=== PATIENT | female | born 1960 | race Caucasian/White ===

== ENCOUNTER → 2021-03-14 13:27 | Outpatient (CLI) | payer BC, SELFPAY | PROVIDERS: Visit Provider Nurse Practitioner | DX: U07.1 COVID-19 (principal) | CPT/HCPCS: C9803; U0003; U0005 ==

== ENCOUNTER 2024-11-01 09:07 | Emergency (ER) | payer BC, SELFPAY ==
[2024-11-01 09:16] VITALS: BP 197/115; PULSE 81; RESP 18; TEMP 36.7; O2SAT 99; BMI 33.5
--- NOTE | 2024-11-01 09:36 | HMH.EDGENADL ---
Discharge Plan Disposition Patient Disposition: Home, Self-Care Condition: Good Prescriptions Prescriptions: No Action triamterene-hydrochlorothiazid 37.5-25 mg capsule PO Patient Comments: TAKE 1 CAPSULE BY MOUTH ONCE DAILY meloxicam 15 mg tablet PO Patient Comments: TAKE 1 TABLET BY MOUTH ONCE DAILY IN THE MORNING FOR ARTHRITIS PAIN losartan 50 mg tablet PO Patient Comments: TAKE 1 TABLET BY MOUTH ONCE DAILY Referrals Follow up/Referrals: Francisco Anand MD [Primary Care Provider, Medical] - See instructions Activity Restrictions/Add. Instructions Additional Instructions/Restrictions: Please return if you develop any new or worsening symptoms. Clinical Impressions Clinical Impression: Tight ring on finger Print Language Print Language: Armenian Discharge ED Provider: Carson Neri General Adult HPI General Chief complaint: Extremity Problem,Nontraumatic Stated complaint: L ring finger swollen/cut off rings Time Seen by Provider: 11/01/24 09:23 Mode of Arrival: Ambulatory Source of Information: Patient Description of Symptoms (Recalled from ER Triage Doc. by RN): Patient presents to ED for left ring finger swelling with wedding bands stuck on finger. Reports only a small amount of pain, started yesterday. History of Present Illness HPI narrative: This is a 64-year-old female patient, with past medical history of hypertension, who is presenting to the emergency department today for evaluation of a ring that is stuck on her left ring finger. Patient states that this ring has become progressively tired over the last couple of weeks and she has been trying to remove the ring for the last couple of days and has been unable to do so. She has not noticed any numbness or tingling in the finger, no discoloration of the finger, but she has noticed progressive swelling of of the tissues surrounding the ring with inability to remove the ring. Related Data Home Medications ?Medication ?Instructions ?Recorded ?Confirmed losartan 50 mg tablet mg PO 07/02/23 07/02/23 meloxicam 15 mg tablet mg PO 07/02/23 07/02/23 triamterene 37.5 cap PO 07/02/23 07/02/23 mg-hydrochlorothiazide 25 mg capsule Allergies Allergy/AdvReac Type Severity Reaction Status Date / Time No Known Allergies Allergy Verified 07/02/23 15:35 [facility] Disclaimer: The information contained in this section may have been updated after the patient was seen, as this information can be updated by other users. Medical History (Updated 11/01/24 @ 09:52 by Carson Neri DO) Hypertension Surgical History (Updated 07/02/23 @ 15:39 by MATT Floyd) H/O: hysterectomy H/O arthroscopy Social History (Updated 07/02/23 @ 15:40 by MATT Floyd) Smoking Status: Never smoker alcohol intake: never current occupational status: employed Travel in the last 8 weeks?: None Have you lived/traveled outside US in past 30 days?: No Contact w/someone who lives/traveled outside US past 30 days?: No Exposure to someone with infectious disease in past 14 days?: No Do you have a fever (greater than 100.4 F or 38 C)?: No Have you tested positive for COVID-19?: No Exposed to someone with COVID-19 in past 14 days?: No Do you have a sore throat?: No Do you have a cough?: No Do you have any weakness?: No Do you have any diarrhea?: No Are you experiencing any unusual bleeding?: No Do you have any muscle aches/pain?: No Do you have any abdominal pain?: No Are you experiencing loss of taste or smell?: No ROS Obtained: Yes Systems reviewed as appropriate & no additional complaints except as documented Physical Exam General General appearance: other (See MDM) Respiratory Respiratory exam: Present other (See MDM) Cardiovascular Cardiovascular exam: Present other (See MDM) Neurological Exam Neurological exam: Present other (See MDM) Medical Decision Making Medical Records Medical records reviewed: Yes I reviewed the patient's medical records. Screening: Per USPSTF and CDC recommendations, given the prevalence of disease in our region, it is our hospital?s policy to screen for HIV and viral Hepatitis for all patients aged 18 and over and those with ongoing risk factors. Gumaro Inquiry Pt receiving controlled substance: No Gumaro was queried for this patient: No Vital Signs: 11/01/24 09:16 11/01/24 09:16 11/01/24 09:54 Temperature 98.0 F 98.0 F 98.0 F Temperature Source Oral Pulse Rate 81 62 Pulse Rate [Left] 81 Respiratory Rate 18 18 16 Blood Pressure 197/115 H 176/93 H Blood Pressure [Right Arm] 197/115 H Blood Pressure Mean [Right Arm] 142 02 Sat by Pulse Oximetry 99 99 Oxygen Delivery Method Room Air Medical Decision Narrative: In summary, this is a 64-year-old female patient who is presenting to the emergency department today for evaluation of a ring that is stuck on her left ring finger. Comorbidities include a past medical history of hypertension. On initial evaluation of the patient they were resting comfortably in no acute distress and nontoxic in appearance. They are hemodynamically stable, saturating well room air, and are neurologically intact. On physical examination of the patient there is a ring that is incarcerated on the left ring finger. There is engorged tissue surrounding this, however she does not have any discoloration of the finger proximally or distally to the ring. She has good capillary refill within the finger and normal sensation in all terminal nerve distributions of the finger. Most likely differential includes incarcerated ring on the finger. There is no concern for compartment syndrome of the finger. No concern for neurovascular injury of the finger. We initially tried to remove the ring by placing a tourniquet on the finger and exsanguinating the finger followed by removal of the ring with the assistance of lubricant jelly. This was unsuccessful. Therefore we used a ring cutter to cut the ring and pry the ring off of her finger. This was successful. Patient did not necessitate any further care while in the emergency department. She remained stable. At this time all questions were answered and all parties were agreeable with the decision to discharge home. Critical Care Critical Care Time Critical Care Time: No
--- OUTSIDE RECORDS SUMMARY | 2024-11-01 09:43 | XMS_ITS | Encounter Summary ---
Author Organization [facility] Address [address] [place] [address] Care Team Providers Care Line Repairer Name Role Phone Gabriel De Leon MD Primary Care Provider [phone] Davin Dong MD Unavailable [phone] Encounter Details Date Type Department Care Team (Latest Contact Info) Description 12/25/2017 Preop Surgical Orders [facility] Physicians - Obstetrics & Gynecology, [facility] [address] [place] [address] Davin Dong MD [address] [facility] [address] [place] [address] Fibroids, intramural Social History Tobacco Use Types Packs/Day Years Used Date Smoking Tobacco: Every Day Smokeless Tobacco: Never Comments No Sex and Gender Information Value Date Recorded Sex Assigned at Not on file Legal Sex Female 1:53 PM EST Gender Identity Not on file Sexual Orientation Not on file documented as of this encounter H&P Notes * Davin Dong MD - 12/25/2017 5:03 PM EDT 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 Mccracken is a 57 y.o. woman who presents for her pre-procedure examination. Please see priorencounter notes for more detail if applicable. Indication for Procedure: Abnormal Bleeding: no Endometrial Assessment: TVUS Uterine Pathology: Fibroids Anemia: No History: Medical History: Past Medical History: Diagnosis Date ??? Hypertension Surgical History: Past Surgical History: Procedure Laterality Date ??? DELIVERY ONLY ??? HX ENDOMETRIAL ABLATION 2002 ??? HX NASAL SEPTUM SURGERY ??? HX URETER SURGERY Social History: Social History Social History ??? Marital status: Spouse name: N/A ??? Number of children: N/A ??? Years of education: N/A Social History Main Topics ??? Smoking status: Current Every Day Smoker ??? Smokeless tobacco: Never Used ??? Alcohol use Not on file ??? Drug use: Unknown ??? Sexual activity: Not on file Other Topics Concern ??? Not on file Social History Narrative ??? No narrative on file Family History: Family History Problem Relation Age of Onset ??? Breast Cancer Mother 72 ??? High Blood Pressure Mother ??? Other Father METASTATIC BLADDER CANCER ??? Diabetes Father ??? Other Maternal Grandfather PROSTATE CANCER WATERSHED ENGINEER Medications: (Not in a hospital admission) Allergies: Allergies Allergen Reactions ??? Ampicillin Itching ??? Coconut ??? Morphine Nausea And Vomiting Review of Systems: ?? Negative for chest pain, palpitations ?? Negative for Endo/Heme ?? Negative for visions concerns ?? Negative for incontinence, dysuria, hematuria ?? Negative for HENT ?? Back pain ?? Negative for migraines or neurological issues ?? Skin: Negative ?? Negative for depression/anxiety Does the patient have a h/o a bleeding disorder (h/o nose bleeds, excessive bleeding following a surgical procedure?): no Have you been diagnosed with Sleep Apnea? no Objective: Vital Signs: vitals were not taken for this visit. Physical Exam: General Appearance: Appearance: alert, well appearing, and in no distress. Heart regular rate and rhythm, S1, S2 normal, no murmur, click, rub or gallop Lungs:clear to auscultation bilaterally Abdomenabdomen is soft without significant tenderness,, organomegaly or guarding. Uterus is 18-20 wks size, prominent at fundus. Pelvic: If supracervical approach, normal gross appearance of cervix and recent normal cytologic cervical exam. N/A Assessment: Impression: Seth Mccracken is a 57 y.o. woman with a diagnosis of massive uterine fibroids with recent growth, abdominal distention. Plan: Recommendations: 1. Medically Stable for Surgery/Anesthesia: Yes 2. Anesthesia preference: General Anesthesia 3. Medications and herbal preparations reviewed and discussed a. Discontinuation of all herbal preparations, vitamin E 7-10 days preop: yes 4. NPO after Midnight yes Seth Mccracken has informed consent? Yes, The risks/benefits associated with the procedure have beendiscussed prior to her surgery. If supracervical is planned , patient aware of the need for ongoingcytologic cervical examinations, the risk of continued light bleeding and lack of benefit in regards to sexual function. Davin Dong MD 12/25/2017 5:07 PM documented in this encounter Plan of Treatment Not on file documented as of this encounter Results * CBC (COMPLETE BLOOD COUNT) (12/31/2017 11:50 AM EST) WBC 6.7 3.8 - 10.8 10*3/uL [facility] RBC 4.42 3.80 - 5.10 10*6/uL [facility] Hemoglobin 14.2 11.7 - 15.5 g/dL [facility] Hematocrit Blood 42.7 35.0 - 45.0 % [facility] MCV 96.6 80.0 - 100.0 fL [facility] MCH 32.1 27.0 - 33.0 pg [facility] MCHC 33.3 32.0 - 36.0 g/dL [facility] RDW 13.8 11.0 - 15.0 % [facility] Platelets 313 140 - 400 10*3/uL [facility] MPV 8.4 7.5 - 11.5 fL [facility] Whole Blood (Blood) 12/31/2017 11:50 AM EST 12/31/2017 4:05 PM EST us Davin Dong MD HEMATOLOGY ORDERABLES Laura l Result [facility] [address] documented in this encounter Visit Diagnoses Diagnosis Fibroids, intramural Intramural leiomyoma of uterus documented in this encounter Care Teams Line Repairer Relationship Specialty Start Date End Date Gabriel De Leon MD [address] [place] [address] PCP - General Internal Medicine 12/18/17 Davin Dong MD [address] [place] [address] [address] [place] [address] Obstetrics & Gynecology 03/05/22 documented as of this encounter
--- OUTSIDE RECORDS SUMMARY | 2024-11-01 09:44 | XMS_ITS | Clinical Summary ---
Author Organization [facility] Address [address] [place] [address] Phone Care Team Providers Care Optical Goods Drill Operator Name Role Phone Francisco Anand MD Primary Care Provider Allergies Active Allergy Reactions Criticality Noted Date Comments Ampicillin Nausea And Vomiting 05/15/2022 Coconut Other (See Comments) 05/15/2022 . Morphine Other (See Comments) 05/15/2022 vomit Medications losartan (COZAAR) 50 mg Oral TabletIndication s:Essential hypertension Take 1 tablet by mouth once daily 30 Tablet 2 07/31/19 25 Active triamterene-hydr ochlorothiazide (DYAZIDE) 37.5-25 mg Oral CapsuleIndicatio ns:Essential hypertension Take 1 capsule by mouth once daily 30 Capsule 2 07/31/19 25 Active meloxicam (MOBIC) 15 mg Oral TabletIndication s:Chronic pain of right knee TAKE 1 TABLET BY MOUTH ONCE DAILY IN THE MORNING FOR ARTHRITIS PAIN 30 Tablet 11/01/19 25 Active meloxicam (MOBIC) 15 mg Oral TabletIndication s:Chronic pain of right knee TAKE 1 TABLET BY MOUTH ONCE DAILY IN THE MORNING FOR ARTHRITIS PAIN 30 Tablet 09/09/19 25 025 Discontinued meloxicam (MOBIC) 15 mg Oral TabletIndication s:Chronic pain of right knee TAKE 1 TABLET BY MOUTH ONCE DAILY IN THE MORNING FOR ARTHRITIS PAIN 30 Tablet 10/04/19 25 09/05/2 025 Discontinued Active Problems Problem Noted Date Diagnosed Date Essential hypertension 05/15/2022 Obesity, Class I, BMI 30-34.9 05/15/2022 Encounters Date Type Department Care Team Description 10/31/2024 Refill [facility] [address] [facility] [address] Francisco Anand MD Medication Refill 10/29/2024 Refill [facility] [address] [place] [address] Francisco Anand MD Medication Refill 10/02/2024 Refill [facility] [address] [place] [address] Francisco Anand MD Medication Refill 09/08/2024 Refill [facility] [address] [place] [address] Francisco Anand MD Medication Refill 09/06/2024 Refill [facility] [address] [place] [address] Francisco Anand MD Medication Refill 08/11/2024 Refill [facility] [address] [place] [address] Francisco Anand MD Medication Refill from Last 3 Months Surgical History Surgery Date Site/Laterality Comments RATNA AND BSO 01/03/2018 Bilateral oopherectomy SECTION 1989 HYSTERECTOMY December 2017 Medical History Medical History Date Comments Hypertension Family History Medical History Relation Name Comments Cancer Father Father Guero Cancer Maternal Grandfather Cancer Mother Mother Viea High Blood Pressure Mother Mother Viea Relation Name Status Comments Father Father Guero Maternal Grandfather prostat e Mother Mother Viea Social History Tobacco Use Types Packs/Day Years Used Date Smoking Tobacco: Former Cigarettes 0.5 40 1 981 - 2019 Smokeless Tobacco: Never Alcohol Use Standard Drinks/Week Comments Yes 3 (1 standard drink = 0.6 oz pur e alcohol) PHQ-2 Answer Date Recorded PHQ-2 Total Score 0 11/07/2023 Sexually Active Control Partners Comments Not Currently NA Comments No Sex and Gender Information Value Date Recorded Sex Assigned at Not on file Legal Sex Female 12:57 AM EDT Gender Identity Not on file Sexual Orientation Not on file Obstetrics History Para Term AB IAB SAB Ectopic Multiple Livin g Live Births 1 Last Filed Vital Signs Vital Sign Reading Time Taken Comments Blood Pressure 134/82 11/07/2023 4:20 PM EDT Pulse - - Temperature 36.4 C (97.6 F) 11/07/2023 4:20 PM EDT Respiratory Rate - - Oxygen Saturation - - Inhaled Oxygen Concentration - - Weight 100.2 kg (221 lb) 11/07/2023 4:20 PM EDT Height 176.5 cm (5' 9.5 ) 11/07/2023 4:20 PM EDT Body Mass Index 32.17 11/07/2023 4:20 PM EDT Plan of Treatment Upcoming Encounters Date Type Department Care Team (Late st Contact Info) Description 11/05/2024 4:00 PM EDT Office Visit [facility] [address] [place] [address] Francisco Anand MD [address] [place] [address] Health Maintenance Due Date Last Done Comments Hepatitis C Screening 1978 DTaP/TDaP/Td (1 - Tdap) 07/05/1979 Colonoscopy 2005 FIT 2005 Sigmoidoscopy 2005 Virtual Colonography 2005 Low Dose Lung Cancer Screening 2010 Pneumococcal Vaccine 50+ (1 of 1 - PCV) 2010 Zoster (1 of 2) 2010 COVID-19 Vaccine (1 - season) 2024 Influenza Vaccine (#1) 2024 Annual Wellness Exam 11/06/2024 11/07/2023 Cologuard 05/26/2025 05/26/2022, 05/26/2022 Colon Cancer Screening 05/26/2025 Breast Cancer Screening 07/07/2026 07/08/19, 05/25/2022, 04/18/2018, Additional history exists Hepatitis B Vaccine Aged Out No longe r eligible based on patient's age to complete this topic Meningococcal B Vaccine Aged Out No l onger eligible based on patient's age to complete this topic Goals Goal Patient Goal Type Associated Problems Recent Progress Patient-Stated? Author Blood Pressure < 140/90 Blood Pressure 134/82(2023 4:20 PM EDT) Francisco Guaman MD Maintain a healthy diet, exercise regularly and maintain an ideal body weight General No Anny Reyes CCMA Stay Tobacco Free Lifestyle Francisco Guaman MD Procedures Procedure Name Priority Date/Time Associated Diagnosis Comments MM MAMMO DIGITAL PAWEL SCREEN BILAT Routine 07/07/2024 4:26 PM EDT Encounter for screening mammogram for malignant neoplasm of breast COLOGUARD Routine 05/26/2022 5:30 AM EDT Screening for colon cancer from Last 3 Months or Most Recently Relevant to Health Maintenance Results * MM MAMMO DIGITAL PAWEL SCREEN BILAT (07/07/2024 4:26 PM EDT) Anatomical Region Laterality Modality Breast Bilateral Mammography 07/07/2024 4:26 PM EDT Impressions 07/08/2024 8:04 AM EDT Negative ([id number]) RECOMMENDATION: Routine Screening Mammogram in 1 Year Bilateral . . COMMENTS: DISCLAIMER *The patient was notified by MyChart or mail of the results for this examination. *The patient's information was entered into a reminder system with a target due date for the next breast imaging, in accordance with the [place] and the Society of Breast Imaging recommendations. *Breast Imaging has a false negative rate of 15%. *Any patient with a palpable abnormality, unexplained by breast imaging, should be managed on a clinical basis by the attending physician. Narrative 07/08/2024 8:04 AM EDT EXAM: MM MAMMO DIGITAL PAWEL SCREEN BILAT EXAM DATE: 07/07/2024 4:26 PM INDICATION: Z12.31-Encounter for screening mammogram for malignant neoplasm of [id number] COMPARISON STUDIES: Compared with prior studies the most recent being 05/25/2022 MM MAMMO DIGITAL PAWEL SCREEN BILAT at [facility] TISSUE DENSITY: There are scattered areas of fibroglandular density. FINDINGS: No mammographic evidence of malignancy. Procedure Note Justyna Brown MD - 07/08/2024 EXAM: MM MAMMO DIGITAL PAWEL SCREEN BILAT EXAM DATE: 07/07/2024 4:26 PM INDICATION: Z12.31-Encounter for screening mammogram for malignantneoplasm of [id number] COMPARISON STUDIES: Compared with prior studies the most recent being 05/25/2022 MM MAMMO DIGITAL PAWEL SCREEN BILAT at [facility] TISSUE DENSITY: There are scattered areas of fibroglandular density. FINDINGS: No mammographic evidence of malignancy. IMPRESSION: Negative ([id number]) RECOMMENDATION: Routine Screening Mammogram in 1 Year Bilateral . . COMMENTS: DISCLAIMER *The patient was notified by MyChart or mail of the results for this examination. *The patient's information was entered into a reminder system with atarget due date for the next breast imaging, in accordance with the [employer] and the Society of Breast Imaging recommendations. *Breast Imaging has a false negative rate of 15%. *Any patient with a palpable abnormality, unexplained by breast imaging,should be managed on a clinical basis by the attending physician. us Francisco Anand MD IM MAMMOGRAPHY ORDERAB LES Final Result * COLOGUARD (05/26/2022 5:30 AM EDT) COLOGUARD CLINICAL REPORT Negative Negative [facility] Comment: NEGATIVE TEST RESULT. A negative Cologuard result indicates a low likelihood that a colorectal cancer (CRC) or advanced adenoma (adenomatous polyps with more advanced pre-malignant features) is present. The chance that a person with a negative Cologuard test has a colorectal cancer is less than 1 in 1500 (negative predictive value >99.9%) or has an advanced adenoma is less than 5.3% (negative predictive value 94.7%). These data are based on a prospective cross-sectional study of 10,000 individuals at average risk for colorectal cancer who were screened with both Cologuard and colonoscopy. (Pal Lerma al, N Engl J Med 2014;370(14):8401-6149) The normal value (reference range) for this assay is negative. COLOGUARD RE-SCREENING RECOMMENDATION: Periodic colorectal cancer screening is an important part of preventive healthcare for asymptomatic individuals at average risk for colorectal cancer. Following a negative Cologuard result, the [place] [employer] and U.S. Multi-Society Task Force screening guidelines recommend a Cologuard re-screening interval of 3 years. References: [place] [employer] Guideline for Colorectal Cancer Screening: https://www.cancer.org/cancer/penqg-nciayz-rhskyj/lzwqbilfh-koaphbdux-mmzbrbr/ac s-rec ommendations.html.; Boo DK, Chao CELIS, Shara MyaK, Colorectal Cancer Screening: Recommendations for Physicians and Patients from the U.S. Multi-Society Task Force on Colorectal Cancer Screening , Am J Gastroenterology 2017; 112:6741-7926. TEST DESCRIPTION: Composite algorithmic analysis of stool DNA-biomarkers with hemoglobin immunoassay. Quantitative values of individual biomarkers are not reportable and are not associated with individual biomarker result reference ranges. Cologuard is intended for colorectal cancer screening of adults of either sex, 45 years or older, who are at average-risk for colorectal cancer (CRC). Cologuard has been approved for use by the U.S. FDA. The performance of Cologuard was established in a cross sectional study of average-risk adults aged 50-84. Cologuard performance in patients ages 45 to 49 years was estimated by sub-group analysis of near-age groups. Colonoscopies performed for a positive result may find as the most clinically significant lesion: colorectal cancer [4.0%], advanced adenoma (including sessile serrated polyps greater than or equal to 1cm diameter) [20%] or non- advanced adenoma [31%]; or no colorectal neoplasia [45%]. These estimates are derived from a prospective cross-sectional screening study of 10,000 individuals at average risk for colorectal cancer who were screened with both Cologuard and colonoscopy. (Pal Franco, N Engl J Med 2014;370(14):1868-6447.) Cologuard may produce a false negative or false positive result (no colorectal cancer or precancerous polyp present at colonoscopy follow up). A negative Cologuard test result does not guarantee the absence of CRC or advanced adenoma (pre-cancer). The current Cologuard screening interval is every 3 years. ([place] [employer] and U.S. Multi-Society Task Force). Cologuard performance data in a 10,000 patient pivotal study using colonoscopy as the reference method can be accessed at the following location: www.[employer]vis[employer].com/results. Additional description of the Cologuard test process, warnings and precautions can be found at www.MicroQuantrd.com. Stool 05/26/2022 5:30 AM EDT 05/27/2022 6:28 PM EDT Francisco Anand MD [employer] - ORDERAB LES Final Result [employer] [place] [address] [place] [address], [facility] [employer] [address] [place] [address] from Last 3 Months or Most Recently Relevant to Health Maintenance Insurance ANTHEM PPO ANTHEM PPO Care Teams Optical Goods Drill Operator Relationship Specialty Start Date End Date Francisco Anand MD [address] [place] [address] PCP - General Family Medicine 05/15/22
--- OUTSIDE RECORDS SUMMARY | 2024-11-01 09:44 | XMS_ITS | Encounter Summary ---
Author Organization [place] [address] Care Team Providers Care Tree Cutter Name Role Phone Francisco Anand MD Primary Care Provider Reason for Visit * Reason Comments Medication Refill Encounter Details Date Type Department Care Team (Late Contact Info) Description 09/06/2024 Refill [facility] [address] [place] [address] Francisco Anand MD [address] [place] [address] Medication Refill Social History Tobacco Use Types Packs/Day Years Used Date Smoking Tobacco: Former Cigarettes 0.5 40 1 1 - 2019 Smokeless Tobacco: Never Alcohol Use [...] on file documented as of this encounter Plan of Treatment Upcoming Encounters Date Type Department Care Team (Late Contact Info) Description 11/05/2024 4:00 PM EDT Office Visit [facility] [address] [place] [address] Francisco Anand MD [address] [place] [address] documented as of this encounter Goals Goal Patient Goal Type Associated Problems Recent Progress Patient-Stated? Author Blood Pressure < 140/90 Blood Pressure 134/82(2023 4:20 PM EDT) No Francisco Anand MD Maintain a healthy diet, exercise regularly and maintain an ideal body weight General No Anny Reyes CCMA Stay Tobacco Free Lifestyle No Francisco Anand MD documented as of this encounter Visit Diagnoses Diagnosis Chronic pain of right knee documented in this encounter Care Teams Tree Cutter Relationship Specialty Start Date End Date Francisco Anand MD [address] [place] [address] PCP - General Family Medicine 05/15/22 documented as of this encounter
--- OUTSIDE RECORDS SUMMARY | 2024-11-01 09:44 | XMS_ITS | Encounter Summary ---
Author Organization [place] [address] Care Team Providers Care Environmental Services Worker Name Role Phone Francisco Anand MD Primary Care Provider Reason for Visit * Reason Comments Medication Refill Encounter Details Date Type Department Care Team (Late st Contact Info) Description 10/02/[address] [facility] [address] [place] [phone] Francisco Anand MD [address] [place] [address] Medication Refill Social History Tobacco Use Types [...] on file documented as of this encounter Ordered Prescriptions Prescription Sig Dispense Quantity Refills Last Filled Start Date End Date meloxicam (MOBIC) 15 mg Oral TabletIndications: Chronic pain of right knee TAKE 1 TABLET BY MOUTH ONCE DAILY IN THE MORNING FOR ARTHRITIS PAIN 30 Tablet 10/03/2024 documented in this encounter Plan of Treatment Upcoming Encounters Date Type Department Care Team (Late st Contact Info) Description 11/05/2024 4:00 PM EDT Office Visit [facility] [address] [place] [phone] Francisco Anand MD [address] [place] [address] documented as of this encounter Goals Goal [...] of right knee documented in this encounter Discontinued Medications Medication Sig Discontinue Reason Start Date End Da te meloxicam (MOBIC) 15 mg Oral TabletIndications:Chron ic pain of right knee TAKE 1 TABLET BY MOUTH ONCE DAILY IN THE MORNING FOR ARTHRITIS PAIN 09/08/2024 10/03/2024 documented as of this encounter Care Teams Environmental Services Worker Relationship Specialty Start Date End Date Francisco Anand MD [address] [place] [address] PCP - General Family Medicine 05/15/22 documented as of this encounter
--- OUTSIDE RECORDS SUMMARY | 2024-11-01 09:44 | XMS_ITS | Encounter Summary ---
Author Organization [place] [address] Care Team Providers Care Environmental Permitting Specialist Name Role Phone Francisco Anand MD Primary Care Provider Reason for Visit * Reason Comments Medication Refill Encounter Details Date Type Department Care Team (Late Contact Info) Description 10/31/[address] [facility] [address] [place] [phone] Francisco Anand MD [address] [place] [address] Medication Refill Social History Tobacco Use Types [...] THE MORNING FOR ARTHRITIS PAIN 30 Tablet 10/31/2024 documented in this encounter Plan of Treatment Upcoming Encounters Date Type Department Care Team (Late st Contact Info) Description 11/05/2024 4:00 PM EDT Office Visit [facility] [address] [place] [phone] Francisco Anand MD [address] [place] [address] documented as of this encounter Goals Goal [...] DAILY IN THE MORNING FOR ARTHRITIS PAIN 10/03/2024 10/31/2024 documented as of this encounter Care Teams Environmental Permitting Specialist Relationship Specialty Start Date End Date Francisco Anand MD [address] [place] [address] PCP - General Family Medicine 05/15/22 documented as of this encounter
--- OUTSIDE RECORDS SUMMARY | 2024-11-01 09:44 | XMS_ITS | Encounter Summary ---
Author [place] [address] Care Team Providers Care Draw Frame Operator Name Role Phone Francisco Anand MD Primary Care Provider Reason for Visit * Reason Onset Date Comments Medication Refill 09/08/2024 Encounter Details Date Type Department Care Team (Late st Contact Info) Description 09/08/2024 Refill [facility] [address] [place] [phone] Francisco Anand MD [address] [place] [address] Medication Refill Social History Tobacco Use Types [...] THE MORNING FOR ARTHRITIS PAIN 30 Tablet 09/08/2024 documented in this encounter Plan of Treatment Upcoming Encounters Date Type Department Care Team (Late st Contact Info) Description 11/05/2024 4:00 PM EDT Office Visit [facility] [address] [place] [phone] Francisco Anand MD [address] [place] [address] documented as of this encounter Goals Goal [...] DAILY IN THE MORNING FOR ARTHRITIS PAIN Reorder 07/16/2024 09/08/2024 documented as of this encounter Care Teams Draw Frame Operator Relationship Specialty Start Date End Date Francisco Anand MD [address] [place] [address] PCP - General Family Medicine 05/15/22 documented as of this encounter
--- OUTSIDE RECORDS SUMMARY | 2024-11-01 09:44 | XMS_ITS | Clinical Summary ---
Author Organization [facility] Address [address] [place] [address] Care Team Providers Care Supply Chain Systems Manager Name Role Phone Gabriel De Leon MD Primary Care Provider [phone] Davin Dong MD Unavailable [phone] Allergies Active Allergy Reactions Criticality Noted Date Comments Ampicillin Itching 12/18/2017 Coconut 12/18/2017 Throat and ears itch Morphine Nausea And Vomiting 12/18/2017 Medications metoprolol succinate (TOPROL) 50 mg Tablet Sustained Release 24 hr Take 50 mg by mouth daily. Active triamterene-hyd rochlorothiazid e (DYAZIDE) 37.5-25 mg per capsule Take 1 Cap by mouth every morning. Active psyllium husk (METAMUCIL PO) Take by mouth daily as needed. Active docusate sodium (COLACE) 100 mg capsule Take 1 Cap by mouth daily. 60 Cap 01/04/2018 11:24 AM EST 8 Active Additional Information Patient not taking.Reported on 03/26/2018 ibuprofen (MOTRIN) 600 mg tablet Take 1 Tab by mouth every 6 hours as needed. 60 Tab 01/04/2018 11:24 AM EST 8 Active Additional Information Patient not taking.Reported on 03/26/2018 Active Problems Problem Noted Date Diagnosed Date Uterine fibroid 01/03/2018 Fibroids, intramural 12/25/2017 Family History Medical History Relation Name Comments Diabetes Father Other Father METASTATIC BLAD JULIANNA CANCER Other Maternal Grandfather PROSTAT E CANCER Breast Cancer Mother High Blood Pressure Mother Anesthesia Complications Neg Hx Heart Problems Neg Hx Relation Name Status Comments Father Maternal Grandfather Mother Social History Tobacco Use Types Packs/Day Years Used Date Smoking Tobacco: Every Day Cigarettes Smokeless Tobacco: Never Alcohol Use Standard Drinks/Week Comments Yes 0 (1 standard drink = 0.6 oz pure alcohol) frequently, but has not drunk any alcohol since 12/22/2017 Comments No Sex and Gender Information Value Date Recorded Sex Assigned at Not on file Legal Sex Female 1:53 PM EST Gender Identity Not on file Sexual Orientation Not on file Last Filed Vital Signs Vital Sign Reading Time Taken Comments Blood Pressure 136/70 03/26/2018 3:53 PM EST Pulse 56 01/05/2018 7:46 AM EST Temperature 36.3 C (97.4 F) 01/05/2018 7:46 AM EST Respiratory Rate 18 01/05/2018 7:46 AM EST Oxygen Saturation 96% 01/05/2018 7:46 AM EST Inhaled Oxygen Concentration - - Weight 92.1 kg (203 lb) 03/26/2018 3:53 PM EST Height 176.5 cm (5' 9.5 ) 03/26/2018 3:53 PM EST Body Mass Index 29.55 03/26/2018 3:53 PM EST Plan of Treatment Health Maintenance Due Date Last Done Comments Cologuard 1960 Colonoscopy 1960 Colorectal Cancer Screening 1960 FIT 1960 Tobacco Cessation Counseling 1972 Tetanus Vaccination (Every 10 Years) 1978 Pneumococcal Vaccine: 50+ Years (1 of 2 - PCV) 980 Hepatitis C Virus (HCV) Screening 1981 Zoster-RZV(Shingrix) (1 of 2) 2010 Breast Cancer Screening 04/15/2020 04/15/2018 Cervical Cancer Screening 12/18/2020 12/18/2017 Lipid Screening 06/08/2022 06/08/2017 Depression Screening 02/27/2024 COVID-19 Vaccine ( - season) 2024 Influenza Vaccination (#1) 2024 RSV Vaccines (1 - 1-dose 75+ series) 07/05/2035 Procedures Procedure Name Priority Date/Time Associated Diagnosis Comments MAMM-SCREENING DIRECT DIGITAL Routine 04/15/2018 4:08 PM EST Menopause CYTOLOGY - PAP, HPV APTIMA MRNA RFX SHANT Routine 12/18/2017 10:11 AM EDT Well female exam with routine gynecological exam LIPID PROFILE Routine 06/08/2017 12:04 PM EDT Routine general medical examination at a health care facility from Last 3 Months or Most Recently Relevant to Health Maintenance Results * MAMM-SCREENING DIRECT DIGITAL (04/15/2018 4:08 PM EST) Anatomical Region Laterality Modality Bilateral Mammography 04/16/2018 7:46 AM EST Impressions 04/16/2018 7:48 AM EST IMPRESSION: Rounded asymmetries in the retroareolar left breast. BI-RADS CATEGORY: 0 - INCOMPLETE: ADDITIONAL IMAGING EVALUATION NEEDED RECOMMENDED FOLLOW-UP: Left Additional views and/or poss ultrasound This study was performed and interpreted using full-field digital mammographic and computer-aided detection. The [employer] recommends annual screening mammography for women age 40 and above. Please note that mammography is not 100% accurate in diagnosing breast cancer. A routine breast examination is recommended to correlate with mammographic findings. Signed By: Viraj Umaña MD 04/16/2018 7:48 AM EST MAMM-SCREENING DIRECT DIGITAL REASON FOR EXAMINATION: Screening COMPARISON: New baseline DENSITY: There are scattered areas of fibroglandular density. FINDINGS: Computer aided detection assisted in the interpretation of the mammogram. Rounded asymmetries in the retroareolar left breast which additional spot compression views and possibly ultrasound recommended. No focal mass, architectural distortion or groupings of suspicious calcifications are seen. Procedure Note Viraj Umaña MD - 04/16/2018 MAMM-SCREENING DIRECT DIGITAL REASON FOR EXAMINATION: Screening COMPARISON: New baseline DENSITY: There are scattered areas of fibroglandular density. FINDINGS: Computer aided detection assisted in the interpretation of the mammogram.Rounded asymmetries in the retroareolar left breast which additional spotcompression views and possibly ultrasound recommended. No focal mass,architectural distortion or groupings of suspicious calcifications areseen. IMPRESSION: Rounded asymmetries in the retroareolar left breast. BI-RADS CATEGORY: 0 - INCOMPLETE: ADDITIONAL IMAGING EVALUATION NEEDED RECOMMENDED FOLLOW-UP: Left Additional views and/or poss ultrasound This study was performed and interpreted using full-field digitalmammographic and computer-aided detection. The [employer] recommends annual screening mammographyfor women age 40 and above. Please note that mammography is not 100% accurate in diagnosing breastcancer. A routine breast examination is recommended to correlate withmammographic findings. Signed By: Viraj Umaña MD Davin Dong MD IMG MAMMO ORDERABLES Final Result * CYTOLOGY - PAP, HPV APTIMA MRNA RFX SHANT (12/18/2017 10:11 AM EDT) Diagnosis Comment [facility] Comment: NEGATIVE FOR INTRAEPITHELIAL LESION AND MALIGNANCY. THIS SPECIMEN WAS RESCREENED PART OF OUR RUBBER ATTACHER PROGRAM. Adequacy Comment [facility] Comment: Satisfactory for evaluation. Endocervical and/or squamous metaplastic cells (endocervical component) are present. Performed Comment [facility] Comment:Sunny Saravia, Cyto technologist (ASCP) Notes Comment [facility] Comment: The Pap smear is a screening test designed to aid in the detection of premalignant and malignant conditions of the uterine cervix. It is not a diagnostic procedure and should not be used as the sole means of detecting cervical cancer. Both false-positive and false-negative reports do occur. HPV Aptima Negative Negative [facility] Comment: This test detects fourteen high-risk HPV types (16/18/31/33/35/39/45/ 51/52/56/58/59/66/68) without differentiation. Performed at: - [address] [id number] Adult And Pediatric Neurologist: Iris Pompa MD, Phone: [phone] Performed at: =[address] [id number] Adult And Pediatric Neurologist: Iris Pompa MD, Phone: [phone] Pap Vial 12/18/2017 10:1 1 AM EDT 12/20/2017 3:57 PM EDT Davin Dong MD PATHOLOGY/CYTOLOGY ORDERAB LES Final Result Performing Organization Address [facility] de Phone Number [facility] [address] * (ABNORMAL) LIPID PROFILE (06/08/2017 12:04 PM EDT) Chol/HDL Ratio 2.7 0 - 5 TC E XTERNAL LAB Cholesterol 203(H) 125 - 199 mg/dL [facility] Comment: TOTAL CHOLESTEROL INTERPRETATION: Less than 200 mg/dL Desireable 200-239 mg/dL Borderline Greater or Equal to 240 mg/dL High LDL Calculated 108(H) 0 - 100 mg/dL [facility] Comment: LDL CHOLESTEROL INTERPRETATION: Less than 100 mg/dL Optimal 100-129 mg/dL Near optimal/above optimal 130-159 mg/dL Borderline High 160-189 mg/dL High Greater or Equal to 190 mg/dL Very High HDL 75 40 - 180 mg/dL [facility] Comment: HDL CHOLESTEROL INTERPRETATION: Less than 40 mg/dL Low Greater than 60 mg/dL Desirable Triglycerides 102 0 - 150 mg/dL [facility] Comment: TOTAL TRIGLYCERIDE INTERPRETATION: Less than 150 mg/dL Normal 150-199 mg/dL Borderline HIgh 200-499 mg/dL High Greater or Equal to 500 mg/dL Very High Plasma 06/08/2017 12:0 4 PM EDT 06/08/2017 5:44 PM EDT Narrative [facility] - 06/08/2017 6:53 PM EDT Has the patient fasted?->Yes us Gabriel De Leon MD CHEMISTRY ORDERABLES Final Resu lt Performing Organization Address [facility]/ZIP Co de Phone Number [facility] [address] from Last 3 Months or Most Recently Relevant to Health Maintenance Insurance ANTH ANTHEM ANTHEM Advance Directives For more information, please contact: [phone] * Full Code (Latest Code Status on File) Date Activated Date Inactivated Comments 01/03/2018 3:00 PM Care Teams Supply Chain Systems Manager Relationship Specialty Start Date End Date Gabriel De Leon MD [address] [place] [id number] PCP - General Internal Medicine 12/18/17 Davin Dong MD [address] [place] [phone] Obstetrics & Gynecology 03/05/22
--- OUTSIDE RECORDS SUMMARY | 2024-11-01 09:44 | XMS_ITS | Encounter Summary ---
Author Organization [place] [address] Care Team Providers Care Room Cooler Installer Name Role Phone Francisco Anand MD Primary Care Provider Reason for Visit * Reason Onset Date Comments Medication Refill 10/29/2024 Encounter Details Date Type Department Care Team (Late st Contact Info) Description 10/29/2024 Refill [facility] [address] [place] [phone] Francisco Anand MD [address] [place] [address] Medication Refill Social History Tobacco Use Types [...] on file documented as of this encounter Miscellaneous Notes * Telephone Encounter - Aby Tapia - 10/31/2024 2:46 PM EDT Select the most appropriate reason for this telephone message: Follow Up Follow Up Who is Calling:Patient What is the caller following up on (make sure to reference any prior documentation/encounter):pt has made a med refill appt on 11-05 pt would like to know if the doctor will call in partial till she makes it in for her appt as she is out of medication Further follow-up needed?:Yes Return Method of Communication:Phone call Additional Information:N/A documented in this encounter Plan of Treatment Upcoming Encounters Date Type Department Care Team (Late st Contact Info) Description 11/05/2024 4:00 PM EDT Office Visit [facility] [address] [place] [facility] [address] Francisco Anand MD [address] [facility] [place] [address] documented as of this encounter Goals Goal Patient Goal Type Associated Problems Recent Progress Patient-Stated? Author Blood Pressure < 140/90 Blood Pressure 134/82(2023 4:20 PM EDT) No Francisco Anand MD Maintain a healthy diet, exercise regularly and maintain an ideal body weight General No Anny Reyes CCMA Stay Tobacco Free Lifestyle No Francisco Anand MD documented as of this encounter Visit Diagnoses Diagnosis Essential hypertension Unspecified essential hypertension documented in this encounter Care Teams Room Cooler Installer Relationship Specialty Start Date End Date Francisco Anand MD [address] [place] [address] PCP - General Family Medicine 05/15/22 documented as of this encounter
[2024-11-01 09:54] VITALS: BP 176/93; PULSE 62; RESP 16; TEMP 36.7; O2SAT 99
== END 2024-11-01 09:59 | disposition home or self-care (01) ==
PROVIDERS: Emergency Provider Student in an Organized Health Care Education/Training Program; PCP Family Medicine
DX: S60.449A External constriction of unspecified finger, initial encounter (principal)
CPT/HCPCS: 99283